=== PATIENT | female | born 1960 | race Caucasian/White ===

== ENCOUNTER 2018-07-29 10:40 | Emergency (ER) | payer BC ==
[2018-07-29 10:56] LABS: URINE APPEARANCE CLEAR; URINE BILIRUBIN NEGATIVE (NEGATIVE); URINE BLOOD LARGE (NEGATIVE); URINE COLOR ORANGE; URINE KETONE NEGATIVE (NEGATIVE); URINE LEUKOCYTE ESTERASE MODERATE (NEGATIVE); URINE NITRITE POSITIVE (NEGATIVE)
[2018-07-29 11:04] LABS: URINE PROTEIN 300 mg/dL (NEGATIVE)
[2018-07-29 11:05] LABS: URINE BACTERIA NONE SEEN; URINE RBC >50 (NONE SEEN); URINE WBC >50 (0-2/hpf)
[2018-07-29] MEDS ORDERED: TMP/SMZ 160MG/800MG TAB PO ONE (11:09)
[2018-07-29] MEDS ORDERED: PHENAZOPYRIDINE HCL 95 MG TABLET PO ONE (11:15)
--- NOTE | 2018-07-29 11:15 | Emergency Department Record ---
History of Present Illness - General Chief complaint: Female Urogenital Problem Stated complaint: BLADDER PAIN Time Seen by Provider: 07/29/18 10:46 Source: Patient Mode of Arrival: Ambulatory Limitations: No limitations - History of Present Illness Initial comments: The patient is here due to a 2-3 hour hx of dysuria, urinary urgency and bladder spasms. She has a hx of similar issues with UTI's in the past. She denies any AP, back or flank pain, fever or vomiting. MD Complaint: Dysuria Onset/Timin -: Hour(s) Radiation: Suprapubic Severity scale (1-10): 8 Quality: Burning, Other Consistency: Constant Improves with: None Worsens with: Urination Patient : No Associated Symptoms: Denies other symptoms - Related Data Home Medications Medication Instructions Recorded Confirmed Last Taken Beclomethasone Dipropionate [Qvar 1 puff IH DAILY 07/29/18 07/29/18 Unknown Redihaler] Previous Rx's Medication Instructions Recorded Phenazopyridine HCl [Pyridium] 100 mg PO TID #6 tablet 07/29/18 Sulfamethoxazole/Trimethoprim 1 tab PO BID #14 tab 07/29/18 [Bactrim Ds] Allergies Allergy/AdvReac Type Severity Reaction Status Date / Time No Known Drug Allergies Allergy Verified 01/04/14 20:36 Travel Screening - Travel/Exposure Within Last 30 Days Have you traveled within the last 30 days?: No Review of Systems Constitutional: Denies: Chills, Fever Eyes: Denies: Eye discharge ENT: Denies: Congestion Respiratory: Denies: Dyspnea Past Medical History - SOCIAL HISTORY Smoking Status: Never smoker Alcohol Use: None Drug Use: None - RESPIRATORY Hx Respiratory Disorders: Yes Hx Asthma: Yes - CARDIOVASCULAR Hx Cardio Disorders: No Comment:: lymphedema R arm - NEURO Hx Neuro Disorders: No - GI Hx GI Disorders: Yes Hx Reflux: Yes - Hx Bladder Problem: Yes - ENDOCRINE Hx Endocrine Disorders: No - MUSCULOSKELETAL Hx Musculoskeletal Disorders: No Hx Fibromyalgia: Yes Comment:: psoriasis - PSYCH Hx Psych Problems: No - HEMATOLOGY/ONCOLOGY Hx Cancer: Yes (R Breast) Hx Chemotherapy: Yes Hx Radiation Therapy: Yes Family Medical History Any Significant Family History?: Yes Hx Diabetes: Mother Hx Heart Disease: Father, Mother Hx Stroke: Mother Physical Exam - General General Appearance: Alert, Oriented x3, Cooperative, No acute distress - Head Head exam: Atraumatic, Normocephalic - Eye Eye exam: Normal appearance, PERRL - Neck Neck exam: Normal inspection, Full ROM. negative: Tenderness - Respiratory Respiratory exam: Normal lung sounds bilaterally. negative: Respiratory distress - Cardiovascular Cardiovascular Exam: Regular rate, Normal rhythm, Normal heart sounds - GI/Abdominal GI/Abdominal exam: Soft, Normal bowel sounds, Tenderness (There is mild Suprapubic tenderness.). negative: Distended, Guarding, Rebound, Rigid - Extremities Extremities exam: Normal inspection, Full ROM, Normal capillary refill. negative: Tenderness - Back Back exam: Denies: CVA tenderness (R), CVA tenderness (L) Course Vital Signs 07/29/18 10:42 Temperature 97.7 F Pulse Rate 69 Respiratory 20 Rate Blood Pressure 171/109 Pulse Ox 98 - Reevaluation(s) Reevaluation #1: I did discuss the UA results with the patient and the need to recheck the urine in a week to be sure the blood resolves. 07/29/18 11:11 Medical Decision Making - Lab Data Lab Results 07/29/18 Range/Units 10:46 Urine Color [place] H Urine Appearance Clear Urine pH 6.0 (5.0-8.0) Ur Specific [place] 1.015 (1.002-1.030) Urine Protein 300 mg/dl H (NEGATIVE) Urine Glucose (UA) 100 mg/dl H (NEGATIVE) Urine Ketones Negative (NEGATIVE) Urine Blood Large H (NEGATIVE) Urine Nitrite Positive H (NEGATIVE) Urine Bilirubin Negative (NEGATIVE) Urine Urobilinogen 2.0 H (0.20 - 1.00) E.U./dL Ur Leukocyte Esterase Moderate H (NEGATIVE) Urine RBC >50 (NONE SEEN) Urine WBC >50 (0-2/hpf) Ur Epithelial Cells 3 - 6 (FEW) Urine Bacteria None seen Disposition Disposition: Discharge Clinical Impression: Cystitis Disposition: Home, Self-Care Condition: (2) Stable Instructions: Urinary Tract Infection in Women (ED) Additional Instructions: Please drink plenty of fluids and continue the Bactrim. Please return to the ER for any worsening symptoms, pain, fever, or vomiting. Please have your urine rechecked next week to be sure the blood resolves. Prescriptions: Phenazopyridine HCl [Pyridium] 100 mg PO TID #6 tablet Sulfamethoxazole/Trimethoprim [Bactrim Ds] 1 tab PO BID #14 tab Forms: Patient Portal Access Time of Disposition: 11:15 Quality - Quality Measures Quality Measures: N/A - Blood Pressure Screening View Details: Yes Does Patient Have Any of the Following: Active Dx of HTN Blood Pressure Classification: Hypertensive Reading Systolic Measurement: 171 Diastolic Measurement: 109 Screening for High Blood Pressure: Patient Exclusion, Hx of HTN [[id number]]
== END 2018-07-29 11:32 | disposition home or self-care (01) ==
LOC: ER 10:40
DX: N30.91 Cystitis, unspecified with hematuria (principal)
CPT/HCPCS: 99282; 99283; 81001; J3490